=== PATIENT | female | born 1985 | race Caucasian/White ===

== ENCOUNTER → 2020-07-05 11:44 | Outpatient (BNVA) | payer MEDICAID, SELFPAY | PROVIDERS: PCP Family Medicine; Visit Provider Obstetrics & Gynecology ==

== ENCOUNTER 2020-09-16 16:23 | Outpatient (REF) | payer MEDICAID, SELFPAY ==
--- NOTE | ~2020-09-16 | US_ITS ---
EXAMINATION: US VENOUS ULTRASOUND WITH DOPPLER LOWER EXTREMITY, RIGHT CLINICAL INFORMATION: Pain COMPARISON: None TECHNIQUE: Ultrasound of the deep veins is performed from the hip to the calf with compression sonography and color and pulse Doppler assessment. Spectral analysis with color-flow imaging is performed. FINDINGS: There is normal venous compression and respiratory variation and augmented flow. The visualized common femoral vein, superficial femoral vein, profunda femoral vein, popliteal vein, and the trifurcation region shows no evidence of deep venous thrombosis. There is no significant popliteal fossa cyst. US/US venous duplex LE RT IMPRESSION: No DVT demonstrated in the right lower extremity.
== END 2020-09-16 16:24 | disposition home or self-care (01) ==
LOC: HO.US 16:23
PROVIDERS: PCP Family Medicine; Visit Provider Nurse Practitioner Primary Care
DX: M79.661 Pain in right lower leg (principal)
CPT/HCPCS: 93971

== ENCOUNTER → 2021-05-16 11:34 | Outpatient (BNVA) | payer MEDICAID, SELFPAY | PROVIDERS: PCP Family Medicine; Visit Provider Advanced Practice Midwife ==

== ENCOUNTER 2022-12-11 20:31 | Outpatient (REF) | payer MEDICAID, SELFPAY ==
[2022-12-12 11:22] LABS: CT PCR NOT DETECTED (Not Detect.); NG PCR NOT DETECTED (Not Detect.)
[2022-12-12 12:48] LABS: BV Int Neg Control Negative (Negative); BV Int Pos Control Positive (Positive)
== END 2022-12-11 20:32 | disposition home or self-care (01) ==
LOC: HO.HHCLNP 20:31
PROVIDERS: Visit Provider General Practice
DX: R10.2 Pelvic and perineal pain (principal); Z20.822 Contact with and (suspected) exposure to COVID-19
CPT/HCPCS: 0353U; 87480; 87510; 87660

== ENCOUNTER 2024-09-26 10:16 | Outpatient (REF) | payer MEDICAID, SELFPAY ==
--- OUTSIDE RECORDS SUMMARY | 2024-09-26 10:19 | XMS_ITS | Clinical Summary ---
Author Organization [employer] Address [address] [place] [address] [address] [place] [address] Care Team Providers Care Crutcher Helper Name Role Phone Diane Elizondo MD Primary Care Provider [phone] Allergies No known active allergies Medications FLUoxetine (PROzac) 40 MG capsule take 1 1/2 (60 mg) capsule by oral route every day in the morning 10/14/19 22 Active hydrOXYzine pamoate (Vistaril) 50 MG capsule TAKE 1 CAPSULE BY MOUTH TWICE A DAY NEEDED FOR ANXIETY 05/29/19 24 Active ibuprofen 600 MG tabletIndicatio ns:Migraine without aura, not intractable, without status migrainosus TAKE 1 TABLET BY MOUTH EVERY 6 HOURS NEEDED WITH FOOD 60 tablet 1 07/31/19 24 Active FLUoxetine (PROzac) 20 MG capsule TAKE 1 CAPSULE BY MOUTH ONCE A DAY TOGETHER WITH A 40MG CAPSULE. TOTAL DOSE 60MG. Active simethicone (Gas-X) 80 MG chewable tablet Chew 1 tablet (80 mg) every 6 (six) hours if needed for flatulence. 60 tablet 10/18/19 24 Active traMADol (Ultram) 50 MG tabletIndicatio ns:Migraine without aura, not intractable, without status migrainosus TAKE 1 TABLET (50 MG) BY MOUTH EVERY 6 HOURS NEEDED FOR SEVERE PAIN 15 tablet 12/04/19 24 Active ramelteon (Rozerem) 8 MG tablet Take 1 tablet (8 mg) by mouth at bedtime. 30 tablet 11 01/22/20 24 025 Active famotidine (Pepcid) 40 MG tabletIndicatio ns:Gastroesopha geal reflux disease, unspecified whether esophagitis present TAKE 1 TABLET BY MOUTH IF NEEDED AT BEDTIME FOR HEARTBURN. 90 tablet 1 02/26/20 24 Active pantoprazole (ProtoNix) 40 MG EC tabletIndicatio ns:Gastroesopha geal reflux disease, unspecified whether esophagitis present TAKE 1 TABLET (40 MG) BY MOUTH BEFORE BREAKFAST. DO NOT CRUSH, CHEW, OR SPLIT. 90 tablet 1 02/26/20 24 Active polyethylene glycol, PEG, 3350 (MiraLax) 17 GM/SCOOP powder Take 17 g by mouth Once per day. 527 g 2 03/24/20 24 Active metoclopramide (Reglan) 5 MG tablet Take 1 tablet (5 mg) by mouth 4 times daily for 10 days. 40 tablet 04/06/20 24 Active docusate sodium (Colace) 100 MG capsule Take 1 capsule (100 mg) by mouth 2 times daily. 60 capsule 2 04/06/20 24 Active ondansetron (Zofran) 4 MG tablet TAKE 1 TABLET (4 MG) BY MOUTH EVERY 8 HOURS NEEDED FOR NAUSEA AND VOMITING 30 tablet 05/28/19 25 Active Tirzepatide-[facility] ght Management (Zepbound) 7.5 MG/0.5ML solution auto-injectorIn dications:Class 1 obesity without serious comorbidity with body mass index (BMI) of 34.0 to 34.9 in adult, unspecified obesity type Inject 0.5 mL (7.5 mg) under the skin 1 (one) time per week. 2 mL 1 09/02/19 25 Active Zepbound 5 MG/0.5ML solution auto-injectorIn dications:Class 1 obesity without serious comorbidity with body mass index (BMI) of 34.0 to 34.9 in adult, unspecified obesity type INJECT FIVE MG SUBCUTANEOUSLY ONCE A WEEK 2 mL 3 09/03/19 25 Active Tirzepatide-[facility] ght Management (Zepbound) 5 MG/0.5ML solutionIndicat ions:Class 1 obesity without serious comorbidity with body mass index (BMI) of 34.0 to 34.9 in adult, unspecified obesity type Inject 5 mg under the skin 1 (one) time per week. Do not start before May 06, 2024. 2 mL 3 05/06/19 25 025 Discontin ued(Dose adjustmen t) Semaglutide-[facility] ght Management (Krissvy) 2.4 MG/0.75ML solution auto-injector Inject 0.75 mL (2.4 mg) under the skin 1 (one) time per week. 3 mL 2 04/17/20 24 025 Discontin ued(Dose adjustmen t) Active Problems Problem Noted Date Diagnosed Date Migraine without aura, not i ntractable, without status migrainosus 06/14/2022 Assessment & Plan (08/28/2023 4:14 PM EDT): Discussed alternative medications and the possible side effects. Explained possible interactions with other medications. F/u in 3 months. Assessment & Plan (06/28/2023 9:15 AM EST): Patient reports having daily migraines. I prescribing her Amitriptyline, Imitrex, and Tramadol. The benefits and side effects were discussed. I ordered an MR Brain and referred to Neurology. I scheduled a F/U with patient in a month. Future Appointments Date Time Provider Department Center 08/02/2023 9:00 AM Diane Elizondo MD [facility] Acute pain of left knee 06/14/2022 Assessment & Plan (08/02/2023 9:31 AM EDT): Patient w/ persistent knee pain, requested referral to ortho. Class 1 obesity without seri ous comorbidity with body mass index (BMI) of 34.0 to 34.9 in adult 05/02/2022 Assessment & Plan (04/06/2024 9:22 AM EST): Patient currently on pharmacotherapy to assist with management of her weight. Starting weight: 179 lbs Current weight: 146 lbs Total weight loss: 33 lbs, lost 18.4% of TBW Reassess in 3 months to discuss if need to further titrate medication. Review continue lifestyle modifications. Patient was titrated up to treatment dose. Tolerated titration well. Patient was transitioned to Zepbound given change in preferred agent by patient? s insurance and medication efficacy. Reviewed mechanism of action with patient. Discussed side effects with patient: nausea, vomiting, diarrhea & risk of pancreatitis. No contraindications identified: , hx of pancreatitis, hx of medullary thyroid cancer or MEN 2. Discussed calorie deficit, recommended reduction of 20-30% of maintenance calories; bacteriologist fishery referral offered. Recommended to decrease soda and sugary beverage consumption. Recommended at least 20 g per meal of protein to assist with satiety. Recommended at least 150 min/week of moderate intensity exercise. Assessment & Plan (01/22/2024 9:17 AM EDT): Patient currently on pharmacotherapy to assist with management of her weight. Starting weight: 179 lbs Current weight: 165 lbs Total weight loss: 14 lbs, expected was 10% TBW by 6 month Review continue lifestyle modifications. Patient was titrated up to treatment dose. Tolerated titration well. Patient on Wegovy, given know efficacy and proven benefits to reduce the risk of cardiovascular events in patients who are overweight or obese and have cardiovascular disease, following of the SELECT trial results. Reviewed mechanism of action with patient. Discussed side effects with patient: nausea, vomiting, diarrhea & risk of pancreatitis. No contraindications identified: , hx of pancreatitis, hx of medullary thyroid cancer or MEN 2. Discussed calorie deficit, recommended reduction of 20-30% of maintenance calories; bacteriologist fishery referral offered. Recommended to decrease soda and sugary beverage consumption. Recommended at least 20 g per meal of protein to assist with satiety. Recommended at least 150 min/week of moderate intensity exercise. Assessment & Plan (10/18/2023 10:32 AM EDT): Pt has gained weight since last visit. Semaglutide is helping with appetite control. -Prescribed: Semaglutide-Weight Management (Wegovy) 1.7 MG/0.75ML solution auto-injector and then it will be increased to 2.4 -F/u after 2.4 increase of Semaglutide -Pt advised to eat at least 20 grams of protein per meal and exercise incorporating light weight. Discussed calorie deficit, recommended reduction of 20-30% of maintenance calories; bacteriologist fishery referral offered. Recommended to decrease soda and sugary beverage consumption. Recommended at least 20 g per meal of protein to assist with satiety. Recommended at least 150 min/week of moderate intensity exercise. Pt experiences nausea and gas as possible adverse effect of drug. -Prescribed: Ondansetron (Zofran) 4 MG tablet for nausea Simethicone (Gas-X) 80 MG chewable tablet for gas Assessment & Plan (08/28/2023 4:38 PM EDT): Discussed calorie deficit, recommended reduction of 20-30% of maintenance calories; bacteriologist fishery referral offered. Recommended to decrease soda and sugary beverage consumption. Recommended at least 20 g per meal of protein to assist with satiety. Recommended at least 150 min/week of moderate intensity exercise. Prescribing Wegovy and advised to f/u one month after beginning medication. Relevant Medication Semiglutide Weight Management Assessment & Plan (09/07/2022 3:00 PM EDT): Will send labs to check levels. Assessment & Plan (05/02/2022 9:12 AM EST): Discussed calorie deficit, recommended reduction of 20-30% of maintenance calories; bacteriologist fishery referral offered. Recommended to decrease soda and sugary beverage consumption. Recommended at least 20 g per meal of protein to assist with satiety. Recommended at least 150 min/week of moderate intensity exercise. Will start pharmacotherapy w/ bupropion/naltrexone and f/u in 1 month. Health maintenance examination 05/02/2022 Assessment & Plan (05/02/2022 9:13 AM EST): Reviewed health risks with patient. Will need to obtain records for her last pap smear VS concerned for BMI, addressed above. Reviewed vaccinations with patient, IZ as needed. Hx of anxiety, following with therapist Labs were ordered for quant Gold previously Labs ordered today given obesity. Anxiety 03/25/2018 Cobalamin deficiency 03/25/2018 Vitamin D deficiency 03/25/2018 Headache 11/08/2011 Assessment & Plan (08/02/2023 9:31 AM EDT): Improvement with amitriptyline, pending MRI report and neurology consult, referral was sent 1 month ago to [facility], waiting on their response. Encounters Date Type Department Care Team Description 09/18/2024 Patient Outreach [facility] [address] [place] [id number] Diane Elizondo MD Pre-visit Planning (SDOH screening negative and Tobacco screening positive) 09/07/2024 9:45 AM EDT Clinical Support [facility] [address] [place] [address] Danitza Fiore RN Class 1 obesity due to excess calories without serious comorbidity with body mass index (BMI) of 34.0 to 34.9 in adult [E66.811, E66.09, Z68.34] 09/07/2024 Travel 09/02/2024 Telephone [facility] [address] [place] [address] Diane Elizondo MD 09/02/2024 Refill [facility] [address] [place] [address] Diane Elizondo MD Class 1 obesity without serious comorbidity with body mass index (BMI) of 34.0 to 34.9 in adult, unspecified obesity type 08/31/2024 Refill [facility] [address] [place] [address] Diane Elizondo MD Class 1 obesity without serious comorbidity with body mass index (BMI) of 34.0 to 34.9 in adult, unspecified obesity type 07/17/2024 Population Health Risk Score [facility] () Department [address] [place] [id number] Provider, Population Health Generic from Last 3 Months Immunizations Immunization Administration Dates Next Due HPV, Quadrivalent 02/28/2007,10/25/2006,07/27/19 07 Influenza injectable quadriv alent IIV4 with preservative 03/25/2018 Influenza injectable quadriv alent preservative free 03/15/2020,02/23/2019 Influenza, Split (incl. nathalia fied surface antigen) 03/13/2013 Influenza, seasonal, injecta ble, preservative free 03/30/2016 MMR 02/14/2018,01/07/2018 Pfizer Covid-19 Vaccine 12+ 06/22/2020, 1 Tdap 11/06/2019,02/01/2016,09/13/2011 Social History Tobacco Use Types Packs/Day Years Used Date Smoking Tobacco: Every Day Cigarettes Smokeless Tobacco: Never Tobacco Cessation:Ready to Q uit: Not Asked; Counseling Given: Not Answered Depression Answer Date Recorded Patient Health Questionnaire-9 Score 7 06/28/2023 Patient Health Questionnaire-9 Score 7 06/28/2023 Last PHQ-9: Questionnaire Data Not on file 0 06/28/2023 Housing Stability Answer Date Recorded What is your housing situation today? I have indra rudd 09/18/[address] you li ve. Do you have problems with any of the following? None of the above 09/18/2024 Food Insecurity Answer Date Recorded Within the past 12 months, y ou worried that your food would run out before you got money to buy more: Never True 09/18/2024 Within the past 12 months,th e food you bought just didn't last and you didn't have enough money to get more: Never True Transportation Answer Date Recorded In the past 12 months, has l ack of transportation kept you from medical appts, meetings, work or from getting things needed for daily living? Yes, it has kept me from medical appointments or getting medications. 09/18/2024 Utilities Answer Date Recorded In the past 12 months, has t he electric, gas, oil or water company threatened to shut off services in your home? No 09/18/2024 Depression Answer Date Recorded Patient Health Questionnaire-2 Score 2 06/28/2023 Internet Access Answer Date Recorded Internet Access Q1 Yes 09/18/2024 Internet Access Q2 Not on file 09/18/2024 Comments Unknown Sex and Gender Information Value Date Recorded Sex Assigned at Female 03/05/2022 10:19 AM EDT Legal Sex Female 10:19 AM EDT Gender Identity Female 03/05/2022 10:19 AM EDT Sexual Orientation Straight 03/05/2022 10 :19 AM EDT Last Filed Vital Signs Vital Sign Reading Time Taken Comments Blood Pressure 112/80 04/06/2024 9:03 AM EST Pulse 80 04/06/2024 9:03 AM EST Temperature 37.1 ??C (98.7 ??F) 04/06/2024 9:03 AM ES T Respiratory Rate 20 04/06/2024 9:03 AM EST Oxygen Saturation 98% 04/06/2024 9:03 AM EST Inhaled Oxygen Concentration - - Weight 59.1 kg (130 lb 3.2 oz) 09/07/2024 9:08 A M EDT Height 153.7 cm (5' 0.5 ) 09/07/2024 9:08 AM EDT Body Mass Index 25.01 09/07/2024 9:08 AM EDT Plan of Treatment Upcoming Encounters Date Type Department Care Team ([facility] st Contact Info) Description 09/30/2024 9:00 AM EDT Office Visit [facility] [address] [place] [address] Diane Elizondo MD [address] [place] [address] Health Maintenance Due Date Last Done Comments HIV Screening 1986 Disability Screening 1986 Alcohol/Substance Use Screening 1998 Family Planning (PISQ) 2001 Hepatitis C Screening 2004 Hepatitis B Vaccines (1 of 3 - 19+ 3-dose series) 2005 Pap Smear 06/01/2022 06/01/2019 COVID-19 Vaccine ( - 2023- season) 2024 04/25/2022, 06/22/2020, 06/01/2020 Cervical Cancer Screening 06/01/2024 HPV/Cotest 06/01/2024 06/01/2019, 02/26/2018 Depression Screening 06/28/2024 06/28/2023, 06/28/19 24 Influenza Vaccine (#1) 2024 , 02/23/2019, 03/25/2018, Additional history exists Postponed from 01/05/2024 (Patient Refused) Pneumococcal Vaccine: Pediatrics (0 to 5 Years) and At-Risk Patients (6 to 49) Years) (1 of 2 - PCV) 01/21/2025 Postponed from 2005 (Patient Refused) Tobacco Screening 04/06/2025 04/06/2024 SDOH Screening 09/18/2025 09/18/2024 Lipid Panel 09/11/2027 09/10/2022 DTaP/Tdap/Td Vaccines (4 - Td or Tdap) 11/05/2029 11/06/2019, 02/01/2016, 09/13/2011 Zoster Vaccines (1 of 2) 2036 RSV Patients and Patients Aged 60 years or older (1 - 1-dose 75+ series) 2061 HPV Vaccines Completed 02/28/2007, 10/05, 07/26/2006 HIB Vaccines Aged Out No longer eligi ble based on patient's age to complete this topic Hepatitis A Vaccines Aged Out No long er eligible based on patient's age to complete this topic IPV Vaccines Aged Out No longer eligi ble based on patient's age to complete this topic Meningococcal B Vaccine Aged Out No l onger eligible based on patient's age to complete this topic Meningococcal Vaccine Aged Out No ml jorge eligible based on patient's age to complete this topic RSV under 20 months Aged Out No longe r eligible based on patient's age to complete this topic Rotavirus Vaccines Aged Out No longer eligible based on patient's age to complete this topic Procedures Procedure Name Priority Date/Time Associated Diagnosis Comments LIPID PANEL, STANDARD Routine 09/10/2022 12:17 PM EDT Class 1 obesity without serious comorbidity with body mass index (BMI) of 34.0 to 34.9 in adult, unspecified obesity type HM PAP/HPV Routine 06/01/2019 from Last 3 Months or Most Recently Relevant to Health Maintenance Results * (ABNORMAL) Lipid Panel, Standard (09/10/2022 12:17 PM EDT) Cholesterol, Total 151 <200 mg/dL [facility] HDL Cholesterol 43(L) > OR = 50 mg/dL [facility] Triglycerides 110 <150 mg/dL [facility] LDL Cholesterol 87 mg/dL (calc) [facility] Comment: Reference range: <100 Desirable range <100 mg/dL for primary prevention; ?? <70 mg/dL for patients with CHD or diabetic patients with > or = 2 CHD risk factors. LDL-C is now calculated using the Edie calculation, which is a validated novel method providing better accuracy than the Friedewald equation in the estimation of LDL-C. Memo WLIKINS et al. CHRISTIANO. 2013;310(19): 2327-6299 (http://education.GoFormz/faq/IGN072) Chol/HDLC Ratio 3.5 <5.0 (calc) [facility] Non-HDL Cholesterol 108 <130 mg/dL (calc) [facility] Comment: For patients with diabetes plus 1 major ASCVD risk factor, treating to a non-HDL-C goal of <100 mg/dL (LDL-C of <70 mg/dL) is considered a therapeutic option. Blood Venous blood specimen / Unknown 09/10/2022 12:17 PM EDT 09/10/2022 12:18 PM EDT Narrative [facility] - 09/15/2022 12:40 PM EDT FASTING:YES FASTING: YES Diane Elizondo MD LAB BLOOD ORDERABLES Final Re sult [facility] [address], [place] [address] [facility] [address] [place] [address] * PAP/HPV (06/01/2019) Pap Negative for intraephithelial lesion or malignancy Negative for intraephithelial lesion or malignancy, Epithelial cell abnormality HPV Not Detected Undetected, Indeterminate, Quantitative, Not Detected Historical Provider HEALTH MAINTENANCE Final Result from Last 3 Months or Most Recently Relevant to Health Maintenance [place] [address] [place] [address] C3 Care Teams Crutcher Helper Relationship Specialty Start Date End Date Diane Elizondo MD [address] [place] [id number] PCP - General Family Medicine 01/20/21
[2024-09-26 10:25] LABS: MANUAL DIFF FLAG NO
[2024-09-26 11:05] LABS: Basophils Absolute Auto 0.1 X10*3/uL (0.0-0.2); Basophils Percent Auto 0.6 % (0-2); Eosinophils Absolute Auto 0.2 X10*3/uL (0.0-0.4); Eosinophils Percent Auto 2.2 % (0-4); Hematocrit 35.6 % (37.0-47.0); Hemoglobin 11.8 g/dl (12.0-16.0); Imm Gran Abs Auto 0.02 X10*3/uL (0.00-0.03); Imm Gran Pct Auto 0.2 % (0.0-0.4); Lymphocytes Absolute Auto 3.9 X10*3/uL (1.2-4.9); Lymphocytes Percent Auto 43.3 % (20-40); Mean Corpuscular HGB Conc 33.1 g/dl (31.0-35.0); Mean Corpuscular Hemoglobin 31.2 pg (27.0-33.0); Mean Corpuscular Volume 94.2 fL (80.0-98.0); Mean Platelet Volume 10.9 fL (9.4-12.3); Monocytes Absolute Auto 0.7 X10*3/uL (0.1-1.2); Monocytes Percent Auto 7.8 % (2-11); Neutrophils Absolute Auto 4.1 x10*3/uL (2.0-8.3); Neutrophils Percent Auto 45.9 % (45-73); Platelet Count 326 X10*3/uL (160-400); Red Blood Count 3.78 X10*6/uL (4.20-5.50); Red Cell Distribution Width 12.6 % (11.0-16.0)
[2024-09-26 11:57] LABS: Alanine Aminotransferase 12 U/L (0-31); Albumin Level 4.7 g/dL (3.5-5.0); Alkaline Phosphatase 77 U/L (39-117); Anion Gap 14 (12-20); Aspartate Amino Transferase 17 U/L (5-31); Bilirubin Total 0.6 mg/dL (0.0-1.0); Blood Urea Nitrogen 12 mg/dL (9-16); Calcium 9.2 mg/dL (8.4-10.2); Carbon Dioxide 24 mmol/L (22-29); Chloride 106 mmol/L (96-108); Estimated Glomerular Filt Rate > 60; Glucose Random 77 mg/dL (60-115); Potassium 3.9 mmol/L (3.3-5.1); Sodium 140 mmol/L (135-145); Total Protein 7.5 g/dL (6.5-8.0)
[2024-09-26 12:16] LABS: TSH reflex Free T4 0.63 uIU/mL (0.32-4.0); Vitamin D 25-OH Total 30.7 ng/mL (>30)
== END 2024-09-26 10:17 | disposition home or self-care (01) ==
LOC: HO.LAB 10:16
PROVIDERS: PCP Family Medicine; Visit Provider Family Medicine
DX: E66.811 Obesity, class 1 (principal); Z68.34 Body mass index [BMI] 34.0-34.9, adult; E55.9 Vitamin D deficiency, unspecified
CPT/HCPCS: 36415; 80053; 82306; 84443; 85025

== ENCOUNTER 2025-01-15 09:16 | Outpatient (REF) | payer MEDICAID, SELFPAY ==
--- OUTSIDE RECORDS SUMMARY | 2025-01-15 08:45 | XMS_ITS | Encounter Summary ---
Demographics Address [address] [place] [address] Work Phone Mobile Phone Home Phone Email Address Preferred Language en Marital Status Episcopal Affiliation Unknown Race White Ethnic Group Unknown Author Organization [employer] Address [address] [place] [address] Care Team Providers Care Combat Engineer Name Role Phone Diane Elizondo MD Primary Care Provider [phone] Reason for Visit * Reason Comments Weight Management Encounter Details Date Type Department Care Team ([facility] Contact Info) Description 01/15/2025 8:45 AM EDT Office Visit [facility] MED & PEDS [address] [place], [place] [id number] Diane Elizondo MD [address] [place] [address] Anemia, unspecified type (Primary Dx); Nicotine use Social History Tobacco Use Types Packs/Day Years Used Date Smoking Tobacco: Every Day Cigarettes Smokeless Tobacco: Never Depression Answer Date Recorded Patient Health Questionnaire-9 Score 9 01/15/2025 Patient Health Questionnaire-9 Score 9 01/15/2025 Last PHQ-9: Questionnaire Data Not on file 0 01/15/2025 Housing Stability Answer Date Recorded What is [...] from getting things needed for daily living? No 01/15/2025 Utilities Answer Date Recorded In the past 12 months, has t he electric, gas, oil or water company threatened to shut off services in your home? No 09/18/2024 Depression Answer Date Recorded Patient Health Questionnaire-2 Score 2 01/15/2025 Internet Access Answer Date Recorded Internet Access Q1 Yes 09/18/2024 Internet Access Q2 Not on file 09/18/2024 Comments Unknown Sex and Gender Information Value Date Recorded Sex Assigned at Female 03/05/2022 10:19 AM EDT Legal Sex Female 10:19 AM EDT Gender Identity Female 03/05/2022 10:19 AM EDT Sexual Orientation Straight 03/05/2022 10 :19 AM EDT documented as of this encounter Last Filed Vital Signs Vital Sign Reading Time Taken Comments Blood Pressure 112/70 01/15/2025 8:46 AM EDT Pulse 78 01/15/2025 8:46 AM EDT Temperature 36.9 C (98.4 F) 01/15/2025 8:46 AM EDT Respiratory Rate 20 01/15/2025 8:46 AM EDT Oxygen Saturation 98% 01/15/2025 8:46 AM EDT Inhaled Oxygen Concentration - - Weight 52.9 kg (116 lb 9.6 oz) 01/15/2025 8:46 A M EDT Height 154 cm (5' 0.63 ) 01/15/2025 8:46 AM EDT Body Mass Index 22.3 01/15/2025 8:46 AM EDT documented in this encounter Functional Status * Over the past 2 weeks, how often have you been bothered by any of the following problems? Question Answer Date of Assessment Author Patient Health Questionnaire-2 Score 2 01/04 8:48 AM EDT Chely Peralta [place] * Little interest or pleasure in doing things Answer Date of Assessment Author Several days 01/15/2025 8:48 AM EDT Chely Peralta MA * Feeling down, depressed, or hopeless Answer Date of Assessment Author Several days 01/15/2025 8:48 AM EDT Chely Peralta MA * Trouble falling or staying asleep, or sleeping too much Answer Date of Assessment Author More than half the days 01/15/2025 8:48 AM EDT Chely Sotomayor MA * Feeling tired or having little energy Answer Date of Assessment Author Nearly every day 01/15/2025 8:48 AM EDT Chely Peralta MA * Poor appetite or overeating Answer Date of Assessment Author Not at all 01/15/2025 8:48 AM EDT Chely Peralta MA * Feeling bad about yourself - or that you are a failure or have let yourself or your family down Answer Date of Assessment Author Several days 01/15/2025 8:48 AM EDT Chely Peralta MA * Trouble concentrating on things, such as reading the newspaper or watching television Answer Date of Assessment Author Several days 01/15/2025 8:48 AM EDT Chely Peralta MA * Moving or speaking so slowly that other people could have noticed? Or the opposite - being so fidgety or restless that you have been moving around a lot more than usual. Answer Date of Assessment Author Not at all 01/15/2025 8:48 AM EDT Chely Peralta MA * Thoughts that you would be better off or hurting yourself in some way Answer Date of Assessment Author Not at all 01/15/2025 8:48 AM EDT Chely Peralta MA * Patient Health Questionnaire-9 Score Answer Date of Assessment Author 9 01/15/2025 8:48 AM EDT Chely Peralta MA * How difficult have these problems made it for you to do your work, take care of things at home, or get along with other people? Answer Date of Assessment Author Very difficult 01/15/2025 8:48 AM EDT Chely Peralta MA documented as of this encounter Progress Notes * Diane Elizondo MD - 01/15/2025 8:45 AM EDT Subjective Patient ID: Zarina Mar is a 39 y.o. female who presents for Weight Management. History of Present Illness Zarina Mar presents for follow-up on weight loss medication management, scalp issues, and smoking cessation. She reports continued weight loss and nausea with her current 5 mg dose of Cephan,which she has not yet reduced as prescribed due to a pharmacy issue. The patient states she lbs at work, indicating ongoing weight loss. She notes feeling tired all the time, weak, and dizzy, which may be related to her low weight. The patient complains of an extremely itchy scalp with flakiness that has not improved with [id number] dandruff shampoos. She also reports ongoing headaches, for which she has been frequently using ibuprofen. The patient expresses a desire to stop vaping but is concerned about potential side effects of nicotine replacement therapy. Regarding her weight loss medication, the patient reports that when she didn't take it for a week, she felt a little bit better and was still nauseous but able to eat more. She is considering taking the medication every other week to mitigate side effects but is concerned about potential weightgain if she reduces or stops the medication. The patient states she is still taking iron supplements as prescribed. She mentions rescheduling her pap smear due to work commitments, preferring an after 5 PM appointment. She also notes that she has not followed up with a neurologist for her headaches due to her previous neurologist leaving the practice and work scheduling difficulties. Social History - Substance Use: Currently vaping, expresses desire to quit Review of Systems General: Positive for fatigue, weight loss. Skin: Positive for itchy scalp, flakiness. HEENT: Positive for dandruff. Gastrointestinal: Positive for nausea. Neurological: Positive for headaches, dizziness. Psychiatric: Positive for weird dreams. Review of Systems Objective Visit Vitals BP 112/70 Pulse 78 Temp 98.4 ??F (36.9 ??C) (Oral) Resp 20 Ht 5' 0.63 (1.54 m) Wt 116 lb 9.6 oz (52.9 kg) SpO2 98% BMI 22.30 kg/m?? Smoking Status Every Day BSA 1.5 m?? Physical Exam Constitutional: General: She is not in acute distress. Appearance: She is not ill-appearing. HENT: Head: Normocephalic and atraumatic. Nose: No congestion. Pulmonary: Effort: Pulmonary effort is normal. No respiratory distress. Breath sounds: Normal breath sounds. Musculoskeletal: Cervical back: Normal range of motion. Neurological: General: No focal deficit present. Mental Status: She is alert. Psychiatric: Mood and Affect: Mood normal. Assessment/Plan Problem List Items Addressed This Visit None Visit Diagnoses Anemia, unspecified type - Primary Relevant Orders Iron And Total Iron Binding Capacity CBC auto differential Nicotine use Relevant Medications nicotine (Nicoderm CQ) 21 MG/24HR patch nicotine (Nicoderm CQ) 14 MG/24HR patch nicotine (Nicoderm CQ) 7 MG/24HR patch Zarina Mar is a female presenting with concerns about weight loss medication side effects, itchy scalp, headaches, and desire to quit vaping. Weight loss medication side effects Assessment: Patient reports significant nausea and weight loss on current 5 mg dose of weight loss medication. She experienced some improvement in nausea when off the medication for a week but still had residual symptoms. The medication's side effects are interfering with the patient's quality of life, causing weakness and dizziness. Plan: - Reports never received dose of Zepbound 5 mg that was sent last month. Resend to [facility] pharmacy - If 5 mg is not tolerated, further reduce to 2.5 mg daily or consider discontinuation - Recheck weight in 1 month - Schedule press reader appointment for weight check on February 15 at 9:30 AM - encourage eating, adding 20 g of protein per meal, veggies and also lifting weight to reduced muscle loss. Seborrheic dermatitis Assessment: Patient complains of extremely itchy scalp and flakiness unresponsive to ibkq-iuy-dvsleck dandruff shampoos. Clinical presentation is consistent with seborrheic dermatitis. Plan: - Prescribe fluconazole shampoo for antifungal treatment - Prescribe fluocinonide steroid for scalp itchiness, to be used up to 2 times daily as needed - Send prescriptions to [facility] pharmacy Nicotine dependence Assessment: Patient expresses desire to quit vaping but is concerned about additional medications. Agrees to try nicotine replacement therapy. Plan: - Prescribe nicotine patches: - 21 mg for 4 weeks - 14 mg for 2 weeks - 7 mg for 2 weeks - Send prescription to [facility] pharmacy - Patient education provided: - Apply patch early in the morning - Remove patch 2-3 hours before sleep - Clean application area - Potential side effects: weird dreams and nausea Chronic headaches Assessment: Patient reports ongoing headaches requiring frequent ibuprofen use. Has not followed upwith neurology due to work commitments and previous neurologist leaving practice. Plan: - Advise patient to contact neurology department for new neurologist assignment and follow-up appointment Anemia Assessment: Patient continues iron supplementation. Follow-up lab work needed to reassess hemoglobin and iron levels. Plan: - Order complete blood count (CBC) to check hemoglobin and white blood cell count - Schedule nurse appointment for lab draw Diabetes screening Assessment: Recent blood work showed normal glucose levels with fasting glucose of 77 mg/dL, rulingout diabetes at this time. Plan: - Continue routine monitoring as part of regular check-ups Cervical cancer screening Assessment: Patient is overdue for Pap smear. Has rescheduled appointment for after 5 PM at [facility]. Plan: - Patient to bring Pap smear records to next appointment once completed documented in this encounter Plan of Treatment Upcoming Encounters Date Type Department Care Team (Late st Contact Info) Description 02/15/2025 9:30 AM EDT Clinical Support [facility] MED & PEDS [address] [place] [address] Scheduled Orders Name Type Priority Associated Diagnoses Orde r Schedule Iron And Total Iron Binding Capacity Lab Routine Anemia, unspecified type Expected: 01/15/2025, Expires: 01/15/2026 CBC auto differential Lab Routine Anemia, unspecified type Expected: 01/15/2025 (Approximate), Expires: 01/15/2026 documented as of this encounter Visit Diagnoses Diagnosis Anemia, unspecified type- Primary Nicotine use documented in this encounter Additional Health Concerns Assessment Noted Time PHQ-9 Depression Total Score: 9 01/16/20 25 8:48 AM EDT documented as of this encounter Care Teams Combat Engineer Relationship Specialty Start Date End Date Diane Elizondo MD [address] [place] [id number] PCP - General Family Medicine 01/20/21 documented as of this encounter
--- OUTSIDE RECORDS SUMMARY | 2025-01-15 10:18 | XMS_ITS | Encounter Summary ---
Demographics Address [address] [place] [address] Work Phone Mobile Phone Home Phone Email Address Preferred Language en Marital Status Confucianism Affiliation Unknown Race White Ethnic Group Unknown Author Organization [employer] Address [address] [place] [address] Care Team Providers Care Lab Head Name Role Phone Diane Elizondo MD Primary Care Provider [phone] Reason for Visit * Reason Onset Date Comments Med Refill 09/23/2023 Encounter Details Date Type Department Care Team ([facility] st Contact Info) Description 09/23/2023 Refill [facility] CH[facility] MED & PEDS [address] [place], [place] [phone] Diane Elizondo MD [address] [place] [address] Social History Tobacco Use Types Packs/Day Years Used Date Smoking Tobacco: Every Day Cigarettes Smokeless Tobacco: Never Depression Answer Date Recorded Patient Health Questionnaire-9 Score 7 06/28/2023 Patient Health Questionnaire-9 Score 7 06/28/2023 Last PHQ-9: Questionnaire Data Not on file 0 06/28/2023 Housing Stability Answer Date Recorded What is your housing situation today? I have indra rudd 06/28/[address] you li ve. Do you have problems with any of the following? None of the above 06/28/2023 Food Insecurity Answer Date Recorded Within the past 12 months, y ou worried that your food would run out before you got money to buy more: Never True 06/28/2023 Within the past 12 months,th e food you bought just didn't last and you didn't have enough money to get more: Never True Transportation Answer Date Recorded In the past 12 months, has l ack of transportation kept you from medical appts, meetings, work or from getting things needed for daily living? No 06/28/2023 Utilities Answer Date Recorded In the past 12 months, has t he electric, gas, oil or water company threatened to shut off services in your home? No 06/28/2023 Depression Answer Date Recorded Patient Health Questionnaire-2 Score 2 06/28/2023 Comments Unknown Sex and Gender Information Value Date Recorded Sex Assigned at Female 03/05/2022 10:19 AM EDT Legal Sex Female 10:19 AM EDT Gender Identity Female 03/05/2022 10:19 AM EDT Sexual Orientation Straight 03/05/2022 10 :19 AM EDT documented as of this encounter Plan of Treatment Upcoming Encounters Date Type Department Care Team (Late st Contact Info) Description 02/15/2025 9:30 AM EDT Clinical Support [facility] MED & PEDS [address] [place] [address] documented as of this encounter Visit Diagnoses Not on filedocumented in this encounter Additional Health Concerns Assessment Noted Time PHQ-9 Depression Total Score: 7 06/28/19 24 8:46 AM EST documented as of this encounter Care Teams Lab Head Relationship Specialty Start Date End Date Diane Elizondo MD [address] [place] [id number] PCP - General Family Medicine 01/20/21 documented as of this encounter
--- OUTSIDE RECORDS SUMMARY | 2025-01-15 10:18 | XMS_ITS | Clinical Summary ---
Demographics Address [address] [place] [address] [address] [place] [address] Work Phone Mobile Phone Home Phone Email Address Preferred Language en Marital Status Orthodox Affiliation Unknown Race White Ethnic Group Unknown Author Organization [employer] Address [address] [facility] 7[address] [place] [address] Care Team Providers Care Wheel Blocker Name Role Phone Diane Elizondo MD Primary Care Provider [phone] Allergies No known active allergies Medications FLUoxetine (PROzac) 40 MG capsule take 1 /2 (60 mg) capsule by oral route every day in the morning 022 Active hydrOXYzine pamoate (Vistaril) 50 MG capsule TAKE 1 CAPSULE BY MOUTH TWICE A DAY NEEDED FOR ANXIETY 024 Active FLUoxetine (PROzac) 20 MG capsule TAKE 1 CAPSULE BY MOUTH ONCE A DAY TOGETHER WITH A 40MG CAPSULE. TOTAL DOSE 60MG. Active simethicone (Gas-X) 80 MG chewable tablet Chew 1 tablet (80 mg) every 6 (six) hours if needed for flatulence. 60 tablet 024 Active traMADol (Ultram) 50 MG tabletIndication s:Migraine without aura, not intractable, without status migrainosus TAKE 1 TABLET (50 MG) BY MOUTH EVERY 6 HOURS NEEDED FOR SEVERE PAIN 15 tablet 024 Active ramelteon (Rozerem) 8 MG tablet Take 1 tablet (8 mg) by mouth at bedtime. 30 tablet 11 024 2024 Active famotidine (Pepcid) 40 MG tabletIndication s:Gastroesophage al reflux disease, unspecified whether esophagitis present TAKE 1 TABLET BY MOUTH IF NEEDED AT BEDTIME FOR HEARTBURN. 90 tablet 1 024 Active pantoprazole (ProtoNix) 40 MG EC tabletIndication s:Gastroesophage al reflux disease, unspecified whether esophagitis present TAKE 1 TABLET (40 MG) BY MOUTH BEFORE BREAKFAST. DO NOT CRUSH, CHEW, OR SPLIT. 90 tablet 1 024 Active docusate sodium (Colace) 100 MG capsule Take 1 capsule (100 mg) by mouth 2 times daily. 60 capsule 2 024 Active ferrous gluconate (Fergon) 324 (38 Fe) MG tablet Take 1 tablet (324 mg) by mouth every other day. 90 tablet 1 025 Active GaviLAX 17 GM/SCOOP powder TAKE 17 G BY MOUTH ONCE PER DAY. 510 g 2 025 Active ibuprofen 600 MG tabletIndication s:Migraine without aura, not intractable, without status migrainosus TAKE 1 TABLET BY MOUTH EVERY 6 HOURS NEEDED WITH FOOD 60 tablet 1 025 Active Tirzepatide-Weig ht Management (Zepbound) 5 MG/0.5ML solution Inject 5 mg under the skin 1 (one) time per week. 2 mL 2 025 Active nicotine (Nicoderm CQ) 21 MG/24HR patchIndications :Nicotine use Place 1 patch on the skin 1 (one) time each day at the same time. 28 patch 025 Active nicotine (Nicoderm CQ) 14 MG/24HR patchIndications :Nicotine use Place 1 patch on the skin 1 (one) time each day at the same time. 14 patch 025 Active nicotine (Nicoderm CQ) 7 MG/24HR patchIndications :Nicotine use Place 1 patch on the skin 1 (one) time each day at the same time. 14 patch 025 Active ondansetron ODT (Zofran-ODT) 4 MG disintegrating tablet Take 1 tablet (4 mg) by mouth every 8 (eight) hours if needed for nausea or vomiting. 80 tablet 025 Active ketoconazole (NIZOral) 2 % shampoo Apply topically 2 (two) times a week. 120 mL 2 025 Active fluocinolone ([place]-Smoothe/F S Body) 0.01 % external oil Apply topically 2 times daily. 120 mL 2 025 2025 Active ibuprofen 600 MG tabletIndication s:Migraine without aura, not intractable, without status migrainosus TAKE 1 TABLET BY MOUTH EVERY 6 HOURS NEEDED WITH FOOD 60 tablet 1 024 2024 Discontinued LORazepam (Ativan) 0.5 MG tabletIndication s:Fear of flying Take 1 tablet (0.5 mg) by mouth if needed each day for anxiety (30 minutes before flying) for up to 2 doses. 2 tablet 025 2024 Discontinued Tirzepatide-Weig ht Management (Zepbound) 7.5 MG/0.5ML solution auto-injectorInd ications:Class 1 obesity without serious comorbidity with body mass index (BMI) of 34.0 to 34.9 in adult, unspecified obesity type Inject 0.5 mL (7.5 mg) under the skin 1 (one) time per week. INJECT ONE PEN (=7.5 MG) SUBCUTANEOUSLY ONCE A WEEK 2 mL 1 025 2024 Discontinued ondansetron ODT (Zofran-ODT) 4 MG disintegrating tablet TAKE 1 TABLET (4 MG) BY MOUTH EVERY 8 HOURS NEEDED FOR NAUSEA AND VOMITING 40 tablet 025 2024 Discontinued(R eorder (will not trigger notification to Pharmacy)) Tirzepatide-Weig ht Management (Zepbound) 5 MG/0.5ML solution Inject 5 mg under the skin 1 (one) time per week. 2 mL 2 025 2024 Discontinued(R eorder (will not trigger notification to Pharmacy)) Active Problems Problem Noted Date Diagnosed Date Orthostatic Symptoms 09/30/2024 Assessment & Plan (09/30/2024 9:38 AM EDT): atient reports feeling dizzy when transitioning from sitting to standing and feeling tired all the time. Recent labs show slight anemia and elevated lymphocytes, suggesting a possible upcoming viral illness. Orthostatic vitals will be checked to rule out orthostatic hypotension. The symptoms may be related to recent weight loss or developing viral illness. Plan: - Perform orthostatic vital signs check - Prescribe ferrous gluconate for mild anemia; instruct patient to take every other day - Advise patient to increase salt intake if orthostatic hypotension is confirmed - Educate patient on signs and symptoms of worsening anemia or viral illness - Follow up on orthostatic symptoms and fatigue at next visit Migraine without aura, not i ntractable, without [...] Center 08/02/2023 9:00 AM Diane Elizondo MD [facility] Acute pain of left knee 06/14/2022 Assessment & Plan (08/02/2023 9:31 AM EDT): Patient w/ persistent knee pain, requested referral to ortho. Class 1 obesity without seri ous comorbidity with body mass index (BMI) of 34.0 to 34.9 in adult 05/02/2022 Assessment & Plan (09/30/2024 9:36 AM EDT): Patient is currently on Zepbound 7.5 mg for weight loss. She has lost 49 pounds since starting the medication, with her weight decreasing from 179 lbs to 128 lbs. The patient reports feeling that she had a few more pounds to lose and wasn't losing much weight on the 5 mg dose. The higher dose has not provoked more nausea. Given the significant weight loss, there is a concern about potentially becoming underweight if the current dose is maintained. Plan: - Continue Zepbound 7.5 mg weekly - Monitor weight closely; consider dose reduction if patient becomes underweight - Educate patient on the importance of adequate nutrition and protein intake while on Zepbound - Follow up to reassess weight and medication efficacy Assessment & Plan (04/06/2024 9:22 AM EST): [...] Zepbound given change in preferred agent by patient s insurance and medication efficacy. Reviewed mechanism of action with patient. Discussed side effects with patient: nausea, vomiting, diarrhea & risk of pancreatitis. No contraindications identified: , hx of pancreatitis, hx of medullary thyroid cancer or MEN 2. Discussed calorie deficit, recommended reduction of 20-30% of maintenance calories; printed circuit board reworker referral offered. Recommended to decrease soda and [...] recommended reduction of 20-30% of maintenance calories; printed circuit board reworker referral offered. Recommended to decrease soda and [...] recommended reduction of 20-30% of maintenance calories; printed circuit board reworker referral offered. Recommended to decrease soda and [...] recommended reduction of 20-30% of maintenance calories; printed circuit board reworker referral offered. Recommended to decrease soda and [...] recommended reduction of 20-30% of maintenance calories; printed circuit board reworker referral offered. Recommended to decrease soda and [...] referral was sent 1 month ago to [facility], waiting on their response. Encounters Date Type Department Care Team Description 01/15/2025 8:45 AM EDT Office Visit [facility] [address] [place] [address] Diane Elizondo MD Anemia, unspecified type (Primary Dx); Nicotine use 01/15/2025 Travel 01/14/2025 Telephone [facility] [address] [place] [address] Diane Elizondo MD chart prep 01/05/2025 Refill [facility] [address] [place] [address] Diane Elizondo MD Class 1 obesity without serious comorbidity with body mass index (BMI) of 34.0 to 34.9 in adult, unspecified obesity type 12/30/2024 Refill [facility] [address] [place] [address] Diane Elizondo MD Class 1 obesity without serious comorbidity with body mass index (BMI) of 34.0 to 34.9 in adult, unspecified obesity type 12/23/2024 Refill [facility] [address] [place] [address] Diane Elizondo MD Migraine without aura, not intractable, without status migrainosus 12/10/2024 Refill [facility] [address] [place] [address] Diane Elizondo MD 11/04/2024 Refill [facility] [address] [place] [address] Diane Elizondo MD Class 1 obesity without serious comorbidity with body mass index (BMI) of 34.0 to 34.9 in adult, unspecified obesity type from Last 3 Months Immunizations Immunization Administration Dates Next Due HPV, Quadrivalent 02/28/2007,10/25/2006,07/27/19 07 Influenza injectable quadriv alent IIV4 with preservative 03/25/2018 Influenza injectable quadriv alent preservative free 03/15/2020,02/23/2019 Influenza, Split (incl. nathalia fied surface antigen) 03/13/2013 Influenza, seasonal, injecta ble, preservative free 03/30/2016 MMR 02/14/2018,01/07/2018 Pfizer Covid-19 Vaccine 12+ 06/22/2020, Tdap 11/06/2019,02/01/2016,09/13/2011 Social History Tobacco Use Types [...] Mass Index 22.3 01/15/2025 8:46 AM EDT Plan of Treatment Upcoming Encounters Date Type Department Care Team (Late st Contact Info) Description 02/15/2025 9:30 AM EDT Clinical Support [facility] [address] [place] [address] Health Maintenance Due Date Last Done Comments HIV Screening 1986 Alcohol/Substance Use Screening 1998 Family Planning (PISQ) 2001 Hepatitis C Screening 2004 Hepatitis B Vaccines (1 of 3 - 19+ 3-dose series) 2005 Cervical Cancer Screening 06/01/2022 HPV/Cotest 06/01/2022 06/01/2019, 02/26/2018 Pap Smear 06/01/2022 06/01/2019 COVID-19 Vaccine ( season) 2025 04/25/2022, 06/22/2020, 06/01/2020 Influenza Vaccine (#1) 2025 , 02/23/2019, 03/25/2018, Additional history exists Pneumococcal Vaccine: Pediatrics (0 to 5 Years) and At-Risk Patients (6 to 49) Years (1 of 2 - PCV) 01/21/2025 Postponed from 2005 (Patient Refused) Depression Monitoring 07/15/2025 01/15/2025, 025 SDOH Screening 09/18/2025 09/18/2024 Disability Screening 01/15/2026 01/15/2025 Tobacco Screening 01/15/2026 01/15/2025 Lipid Panel 09/11/2027 09/10/2022 DTaP/Tdap/Td Vaccines (4 [...] PM EDT) Cholesterol, Total 151 <200 mg/dL [facility] HDL Cholesterol 43(L) > OR = 50 mg/dL [facility] [place] [facility] Triglycerides 110 <150 mg/dL [facility] [place] [facility] LDL Cholesterol 87 mg/dL (calc) [facility] Comment: Reference range: <100 Desirable range <100 mg/dL for primary prevention; <70 mg/dL for patients with CHD or diabetic patients with > or = 2 CHD risk factors. LDL-C is now calculated using the Edie calculation, which is a validated novel method providing better accuracy than the Friedewald equation in the estimation of LDL-C. Memo SS et al. CHRISTIANO. 2013;310(19): 2325-1845 (http://education.OmniStrat/faq/KSW213) Chol/HDLC Ratio 3.5 <5.0 (calc) [facility] Non-HDL Cholesterol 108 <130 mg/dL (calc) [facility] Comment: For patients with diabetes plus 1 major ASCVD risk factor, treating to a non-HDL-C goal of <100 mg/dL (LDL-C of <70 mg/dL) is considered a therapeutic option. Blood Venous blood specimen / Unknown 09/10/2022 12:17 PM EDT 09/10/2022 12:18 PM EDT Narrative [facility] - 09/15/2022 12:40 PM EDT FASTING:YES FASTING: YES Diane Elizondo MD LAB BLOOD ORDERABLES Final Re sult [facility] [address], [place] [address] [facility] [place] [facility] [address] [place] [address] * PAP/HPV (06/01/2019) Pap Negative for intraephithelial lesion or malignancy Negative for intraephithelial lesion or malignancy, Epithelial cell abnormality HPV Not Detected Undetected, Indeterminate, Quantitative, Not Detected Historical Provider HEALTH MAINTENANCE Final Result from Last 3 Months or Most Recently Relevant to Health Maintenance Insurance [facility] C3 Care Teams Wheel Blocker Relationship Specialty Start Date End Date Diane Elizondo MD [address] [place] [id number] PCP - General Family Medicine 01/20/21
--- OUTSIDE RECORDS SUMMARY | 2025-01-15 10:18 | XMS_ITS | Encounter Summary ---
Demographics Address [address] [place] [address] Work Phone Mobile Phone Home Phone Email Address Preferred Language en Marital Status Uatsdin Affiliation Unknown Race White Ethnic Group Unknown Author Organization [employer] Address [address] [place] [address] Care Team Providers Care Adoption Coordinator Name Role Phone Diane Elizondo MD Primary Care Provider [phone] Encounter Details Date Type Department Care Team ([facility] st Contact Info) Description 06/26/2023 Telephone [facility] [address] [place] [address] Diane Elizondo MD [address] [place] [address] Social History Tobacco Use Types Packs/Day Years Used Date Smoking Tobacco: Every Day Cigarettes Smokeless Tobacco: Never Depression Answer Date Recorded Patient Health Questionnaire-9 Score 7 06/28/2023 Patient Health Questionnaire-9 Score 7 06/28/2023 Last PHQ-9: Questionnaire Data Not on file 0 06/28/2023 Housing Stability Answer Date Recorded What is your housing situation today? I have indratana rudd 06/28/[address] you [...] AM EDT documented as of this encounter Functional Status * Over the past 2 weeks, how often have you been bothered by any of the following problems? Question Answer Date of Assessment Author Patient Health Questionnaire-2 Score 2 06/07 8:46 AM Chely Victoria [place] * If you checked off any problems on this questionnaire so far, Question Answer Date of Assessment Author How difficult have these problems made it for you to do your work, take care of things at home, or get along with other people? Not difficult at all 06/28/2023 8:46 AM Chely Victoria [place] * Over the past 2 weeks, how often have you been bothered by any of the following problems? Question Answer Date of Assessment Author Little interest or pleasure in doing things Several days 06/28/2023 8:46 AM Kristopher Victoria [place] Feeling down, depressed, or hopeless Several days 06/28/2023 8:46 AM Chely Victoria M A Trouble falling or staying asleep, or sleeping too much More than half the days 06/28/2023 8:46 AM hCely Victoria [place] Feeling tired or having little energy More than half the days 06/28/2023 8:46 AM Chely Victoria [place] Poor appetite or overeating Not at all 06/28/2023 8:46 AM Chely Victoria M A Feeling bad about yourself - or that you are a failure or have let yourself or your family down Not at all 06/28/2023 8:46 AM Chely Victoria M A Trouble concentrating on things, such as reading the newspaper or watching television Several days 06/28/2023 8:46 AM Chely Victoria M A Moving or speaking so slowly that other people could have noticed? Or the opposite - being so fidgety or restless that you have been moving around a lot more than usual. Not at all 06/28/2023 8:46 AM Chely Victoria M A Thoughts that you would be better off or hurting yourself in some way Not at all 06/28/2023 8:46 AM Chely Victoria MA Patient Health Questionnaire-9 Score 7 06/28/2023 8:46 AM Chely Victoria [place] documented as of this encounter Miscellaneous Notes * Telephone Encounter - Ludwin Hernandez - 06/26/2023 4:25 PM EST Tc from pt calling in regards to message prior. * Telephone Encounter - Della Kenney - 06/26/2023 12:20 PM EST Tc from pt requesting to switch 06/28 appt to televist, stated is on a new job and don't want to take the hours, also stated just want to speak about migraines with PCP. documented in this encounter Plan of Treatment Upcoming Encounters Date Type Department Care Team (Late st Contact Info) Description 02/15/2025 9:30 AM EDT Clinical Support [facility] [address] [place] [address] documented as of this encounter Visit Diagnoses Not on filedocumented in this encounter Additional Health Concerns Assessment Noted Time PHQ-9 Depression Total Score: 12 022 11:23 AM EST documented as of this encounter Care Teams Adoption Coordinator Relationship Specialty Start Date End Date Diane Elizondo MD [address] [place] [address] PCP - General Family Medicine 01/20/21 documented as of this encounter
--- OUTSIDE RECORDS SUMMARY | 2025-01-15 10:18 | XMS_ITS | Encounter Summary ---
Demographics Address [address] [facility] [address] [place] [address] Work Phone Mobile Phone Home Phone Email Address Preferred Language en Marital Status Latter Day Affiliation Unknown Race White Ethnic Group Unknown Author Organization [employer] Address [address] [place] [address] Care Team Providers Care Bridge Builder Name Role Phone Diane Elizondo MD Primary Care Provider [phone] Reason for Visit * Reason Onset Date Comments chart prep 01/14/2025 Encounter Details Date Type Department Care Team ([facility] Contact Info) Description 01/14/2025 Telephone [facility] [address] [place] [address] Diane Elizondo MD [address] [place] [address] chart prep Social History Tobacco Use Types Packs/Day Years [...] AM EDT documented as of this encounter Miscellaneous Notes * Telephone Encounter - Elise Choe [place] - 01/14/2025 10:11 AM EDT Chart Prep Labs: done Images: not done Referrals: not applicable Vaccines due: Covid, Flu, and Hep B Screenings: pap smear Overdue care gaps: SBIRT, PHQ-9, and Disability screen documented in this encounter Plan of Treatment Upcoming Encounters Date Type Department Care Team (Late st Contact Info) Description 02/15/2025 9:30 AM EDT Clinical Support [facility] [address] [place] [address] documented as of this encounter Visit Diagnoses Not on filedocumented in this encounter Additional Health Concerns Assessment Noted Time PHQ-9 Depression Total Score: 7 06/28/19 24 8:46 AM EST documented as of this encounter Care Teams Bridge Builder Relationship Specialty Start Date End Date Diane Elizondo MD [address] [place] [address] PCP - General Family Medicine 01/20/21 documented as of this encounter
--- OUTSIDE RECORDS SUMMARY | 2025-01-15 10:18 | XMS_ITS | Encounter Summary ---
Demographics Address [address] [facility] [address] [place] [address] Work Phone Mobile Phone Home Phone Email Address Preferred Language en Marital Status Sikh Affiliation Unknown Race White Ethnic Group Unknown Author Organization [employer] Address [address] [place] [address] Care Team Providers Care Kettle Firer Name Role Phone Diane Elizondo MD Primary Care Provider [phone] Reason for Visit * Reason Onset Date Comments Reschedule 06/26/2023 Encounter Details Date Type Department Care Team ([facility] st Contact Info) Description 06/26/[address] [facility] [address] [place] [address] Diane Elizondo MD [address] [place] [id number] Reschedule Social History Tobacco Use Types Packs/Day Years [...] days 06/28/2023 8:46 AM Chely Victoria [place] Feeling tired or having little [...] encounter Miscellaneous Notes * Telephone Encounter - Della Kenney - 06/26/2023 12:19 PM EST Tc from pt requesting r/s ACADEMIC INTERVENTIONIST appt, please contact pt. documented in this encounter Plan of Treatment Upcoming Encounters Date Type Department Care Team (Late st Contact Info) Description 02/15/2025 9:30 AM EDT Clinical Support [facility] [address] [place] [address] documented as of this encounter Visit Diagnoses Not on filedocumented in this encounter Additional Health Concerns Assessment Noted Time PHQ-9 Depression Total Score: 12 022 11:23 AM EST documented as of this encounter Care Teams Kettle Firer Relationship Specialty Start Date End Date Diane Elizondo MD [address] [place] [address] PCP - General Family Medicine 01/20/21 documented as of this encounter
--- OUTSIDE RECORDS SUMMARY | 2025-01-15 10:18 | XMS_ITS | Encounter Summary ---
Demographics Address [address] [facility] [facility] [address] [place] [address] Work Phone Mobile Phone Home Phone Email Address Preferred Language en Marital Status Jainism Affiliation Unknown Race White Ethnic Group Unknown Author Organization [employer] Address [address] [place] [address] Care Team Providers Care Handbook Writer Name Role Phone Diane Elizondo MD Primary Care Provider Reason for Visit * Reason Comments Med Refill Encounter Details Date Type Department Care Team ([facility] Contact Info) Description 12/03/2023 Refill [facility] [address] [place], [place] [id number] Diane Elizondo MD [address] [place] [address] Migraine without aura, not intractable, without status migrainosus Social History Tobacco Use Types Packs/Day Years [...] Description 02/15/2025 9:30 AM EDT Clinical Support [facility] [address] [place] [address] documented as of this encounter Visit Diagnoses Diagnosis Migraine without aura, not intractable, without status migrainosus documented in this encounter Additional Health Concerns Assessment Noted Time PHQ-9 Depression Total Score: 7 06/28/19 24 8:46 AM EST documented as of this encounter Care Teams Handbook Writer Relationship Specialty Start Date End Date Diane Elizondo MD [address] [place] [address] PCP - General Family Medicine 01/20/21 documented as of this encounter
--- OUTSIDE RECORDS SUMMARY | 2025-01-15 10:18 | XMS_ITS | Encounter Summary ---
Demographics Address [address] [facility] [address] [place] [address] Work Phone Mobile Phone Home Phone Email Address Preferred Language en Marital Status Druze Affiliation Unknown Race White Ethnic Group Unknown Author Organization [employer] Address [address] [place] [address] Care Team Providers Care Supervisor Nut Processing Name Role Phone Diane Elizondo MD Primary Care Provider [phone] Encounter Details Date Type Department Care Team (Latest Contact Info) Description 01/15/2025 Travel Social History Tobacco Use Types Packs/Day Years [...] [place] documented as of this encounter Plan of Treatment Upcoming Encounters Date Type Department Care Team (Late st Contact Info) Description 02/15/2025 9:30 AM EDT Clinical Support [facility] [address] [place] [address] documented as of this encounter Visit Diagnoses Not on filedocumented in this encounter Additional Health Concerns Assessment Noted Time PHQ-9 Depression Total Score: 9 01/16/20 25 8:48 AM EDT documented as of this encounter Care Teams Supervisor Nut Processing Relationship Specialty Start Date End Date Diane Elizondo MD [address] [place] [id number] PCP - General Family Medicine 01/20/21 documented as of this encounter
--- OUTSIDE RECORDS SUMMARY | 2025-01-15 10:18 | XMS_ITS | Encounter Summary ---
Demographics Address [address] [place] [address] Work Phone Mobile Phone Home Phone Email Address Preferred Language en Marital Status Hoahaoism Affiliation Unknown Race White Ethnic Group Unknown Author Organization [employer] Address [address] [place] [address] Care Team Providers Care Fly Tier Name Role Phone Diane Elizondo MD Primary Care Provider Reason for Visit * Reason Comments Med Refill Encounter Details Date Type Department Care Team ([facility] Contact Info) Description 12/30/2024 Refill [facility] [address] [place], [place] [phone] Diane Elizondo MD [address] [place] [address] Class 1 obesity without serious comorbidity with body mass index (BMI) of 34.0 to 34.9 in adult, unspecified obesity type Social History Tobacco Use Types Packs/Day Years [...] Description 02/15/2025 9:30 AM EDT Clinical Support [facility] [address] [place] [address] documented as of this encounter Visit Diagnoses Diagnosis Class 1 obesity without serious comorbidity with body mass index (BMI) of 34.0 to 34.9 in adult, unspecified obesity type documented in this encounter Additional Health Concerns Assessment Noted Time PHQ-9 Depression Total Score: 7 06/28/19 24 8:46 AM EST documented as of this encounter Care Teams Fly Tier Relationship Specialty Start Date End Date Diane Elizondo MD [address] [place] [id number] PCP - General Family Medicine 01/20/21 documented as of this encounter
--- OUTSIDE RECORDS SUMMARY | 2025-01-15 10:18 | XMS_ITS | Encounter Summary ---
Demographics Address [address] [address] [place] [address] Work Phone Mobile Phone Home Phone Email Address Preferred Language en Marital Status Voodoo Affiliation Unknown Race White Ethnic Group Unknown Author Organization [employer] Address [address] [place] [address] Care Team Providers Care Director Of Vocational Guidance Name Role Phone Diane Elizondo MD Primary Care Provider [phone] Reason for Visit * Reason Comments Med Refill Encounter Details Date Type Department Care Team ([facility] Contact Info) Description 01/05/2025 Refill [facility] [address] [place], [place] [phone] Diane Elizondo MD [address] [place] [address] Class 1 obesity without serious comorbidity with [...] Description 02/15/2025 9:30 AM EDT Clinical Support [facility] [address] [place] [address] documented as of this encounter Visit Diagnoses Diagnosis Class 1 obesity without serious comorbidity with body mass index (BMI) of 34.0 to 34.9 in adult, unspecified obesity type documented in this encounter Additional Health Concerns Assessment Noted Time PHQ-9 Depression Total Score: 7 06/28/19 24 8:46 AM EST documented as of this encounter Care Teams Director Of Vocational Guidance Relationship Specialty Start Date End Date Diane Elizondo MD [address] [place] [id number] PCP - General Family Medicine 01/20/21 documented as of this encounter
--- OUTSIDE RECORDS SUMMARY | 2025-01-15 10:19 | XMS_ITS | Encounter Summary ---
Demographics Address [address] [facility] [place] [address] Work Phone Mobile Phone Home Phone Email Address Preferred Language en Marital Status Congregational Affiliation Unknown Race White Ethnic Group Unknown Author Organization [employer] Address [address] [place] [address] Care Team Providers Care Grocery Packer Name Role Phone Diane Elizondo MD Primary Care Provider [phone] Reason for Visit * Reason Onset Date Comments Med Refill 05/27/2024 Encounter Details Date Type Department Care Team ([facility] st Contact Info) Description 05/27/2024 Refill [facility] [address] [place], [place] [phone] Diane Elizondo MD [address] [place] [address] Social History Tobacco Use Types Packs/Day Years [...] Description 02/15/2025 9:30 AM EDT Clinical Support [facility] [address] [place] [address] documented as of this encounter Visit Diagnoses Not on filedocumented in this encounter Additional Health Concerns Assessment Noted Time PHQ-9 Depression Total Score: 7 06/28/19 24 8:46 AM EST documented as of this encounter Care Teams Grocery Packer Relationship Specialty Start Date End Date Diane Elizondo MD [address] [place] [id number] PCP - General Family Medicine 01/20/21 documented as of this encounter
[2025-01-15 14:24] LABS: MANUAL DIFF FLAG NO
[2025-01-15 14:33] LABS: Hematocrit 32.1 % (37.0-47.0); Hemoglobin 10.8 g/dl (12.0-16.0); Imm Gran Abs Auto 0.02 X10*3/uL (0.00-0.03); Imm Gran Pct Auto 0.3 % (0.0-0.4); Lymphocytes Absolute Auto 2.9 X10*3/uL (1.2-4.9); Mean Corpuscular HGB Conc 33.6 g/dl (31.0-35.0); Mean Corpuscular Hemoglobin 31.1 pg (27.0-33.0); Mean Corpuscular Volume 92.5 fL (80.0-98.0); NRBC Abs Auto 0.000 X10*3/uL (0.0-0.012); NRBC Pct Auto 0.0 /100WBC (0.0-0.2); Platelet Count 320 X10*3/uL (160-400); Red Blood Count 3.47 X10*6/uL (4.20-5.50); White Blood Count 7.5 X10*3/uL (4.8-10.8)
[2025-01-15 15:05] LABS: Iron 75 mcg/dL (30-160); Percent Iron Saturation 36 % (15-50); Total Iron Binding Capacity 209 mcg/dL (228-428); Unsaturated Iron Binding 134 ug/dL
== END 2025-01-15 09:17 | disposition home or self-care (01) ==
LOC: HO.CHCLDS 09:16
PROVIDERS: Visit Provider Family Medicine
DX: D64.9 Anemia, unspecified (principal)
CPT/HCPCS: 36415; 83540; 85025

== ENCOUNTER 2025-04-16 09:46 | Outpatient (REF) | payer MEDICAID, SELFPAY ==
[2025-04-16 15:43] LABS: Iron 69 mcg/dL (30-160); Percent Iron Saturation 29 % (15-50); Total Iron Binding Capacity 234 mcg/dL (228-428); Unsaturated Iron Binding 165 ug/dL
[2025-04-16 15:48] LABS: Ferritin 129 ng/mL (10-122)
== END 2025-04-16 09:47 | disposition home or self-care (01) ==
LOC: HO.CHCLDS 09:46
PROVIDERS: Visit Provider Family Medicine
DX: D64.9 Anemia, unspecified (principal)
CPT/HCPCS: 36415; 82728; 83020; 83540; 85014; 85018; 85041